=== PATIENT | female | born 1975 | race Caucasian/White ===

== ENCOUNTER 2017-06-22 00:25 | Emergency (ER) | payer MEDICAID ==
[~2017-06-22] VITALS: Ht 160 cm; Wt 58.7 kg
[2017-06-22 00:27] VITALS: BP 148/89
[2017-06-22] MEDS ORDERED: LIDOCAINE 1%, 20ML ONE (01:17)
== END 2017-06-22 02:08 | disposition home or self-care (01) ==
LOC: ED 01:30
DX: L02.416 Cutaneous abscess of left lower limb (principal); F17.200 Nicotine dependence, unspecified, uncomplicated; F11.10 Opioid abuse, uncomplicated
CPT/HCPCS: 10060

== ENCOUNTER 2017-11-11 22:28 | Emergency (ER) | payer MEDICAID ==
[~2017-11-11] VITALS: Ht 157.5 cm; Wt 60.0 kg
[2017-11-11] MEDS ORDERED: KETOROLAC 30 MG/1 ML ONE ×2 (23:14→23:28)
[2017-11-11] MEDS ORDERED: ONDANSETRON 2MG/ML, 2ML ONE (23:14)
[2017-11-11] MEDS ORDERED: PROMETHAZINE 25 MG/ML, 1ML ONE ×2 (23:14→23:27)
[2017-11-11 23:26] LABS: BASOPHILS # (AUTO) 0.04 x10^3/uL (0-0.1); BASOPHILS % (AUTO) 1 % (0-1); EOSINOPHILS # (AUTO) 0.02 x10^3/uL (0-0.4); EOSINOPHILS % (AUTO) 0 % (1-7); LYMPHOCYTES % (AUTO) 23 % (22-44); MD NO; MEAN CORPUSCULAR HEMOGLOBIN 28.3 pg (27.0-34.8); MEAN CORPUSCULAR HGB CONC 33.2 g/dL (32.4-35.8); MEAN CORPUSCULAR VOLUME 85.1 fL (80-100); MEAN PLATELET VOLUME 7.3 fL (7.4-10.4); MONOCYTES # (AUTO) 0.27 x10^3/uL (0.2-0.8); MONOCYTES % (AUTO) 4 % (2-9); NEUTROPHILS % (AUTO) 72 % (42-75); PLATELET COUNT 339 x10^3/uL (130-400); RED BLOOD COUNT 4.86 x10^6/uL (3.82-5.3); RED CELL DISTRIBUTION WIDTH 16.6 % (9.6-15.2)
[2017-11-11] MEDS ORDERED: ONDANSETRON 2MG/ML, 2ML IVPush ONE (23:30)
[2017-11-11] MEDS ORDERED: SODIUM CHLORIDE 0.9% 1,000ML IVBOLUS ONE (23:30)
[2017-11-11] MEDS ORDERED: KETOROLAC 30 MG/1 ML IVPush ONE (23:30)
[2017-11-11] MEDS ORDERED: SODIUM CHLORIDE FLUSH 10ML SYR IVF ONE (23:30)
[2017-11-11] MEDS ORDERED: PROMETHAZINE 25 MG/ML, 1ML IM ONE (23:30)
[2017-11-11 23:31] LABS: ALANINE AMINOTRANSFERASE 21 U/L (12-78); ALBUMIN 3.3 g/dL (3.4-5.0); ANION GAP 12 mmol/L (5-15); CALCIUM 8.6 mg/dL (8.5-10.1); CHLORIDE 107 mmol/L (98-107); CREATININE 1.03 mg/dL (0.55-1.02)
[2017-11-11 23:36] LABS: ALKALINE PHOSPHATASE 92 U/L (45-117); BILIRUBIN,TOTAL 0.8 mg/dL (0.2-1.0); TOTAL PROTEIN 7.6 g/dL (6.4-8.2)
[2017-11-12 01:03] VITALS: BP 142/89
== END 2017-11-12 01:10 | disposition home or self-care (01) ==
LOC: ED 23:59
DX: F11.23 Opioid dependence with withdrawal (principal)
CPT/HCPCS: 36415; 80053; 83690; 84703; 85025; 96361; 96372; 96374; 99284; J1885; J2550; J7030